=== PATIENT | male | born 1970 | race Caucasian/White ===

== ENCOUNTER 2019-10-12 13:12 | Outpatient (CLI) | payer BC, SELFPAY ==
--- NOTE | ~2019-10-12 | US_ITS ---
EXAMINATION: US venous doppler [facility] EXAM DATE: 10/12/2019 15:12 INDICATION: Left leg DVT follow-up. TECHNIQUE: Multiple grayscale, color flow and Doppler images of the left lower extremity deep venous system were obtained and reviewed. There is no prior study for comparison. FINDINGS: The left common femoral, femoral and profunda veins demonstrate normal color flow, respirat ory variation, augmentation and compressibility. Compressibility, color flow confirmed within the le ft popliteal, posterior tibial, peroneal, and greater saphenous veins. IMPRESSION: 1. No left lower extremity deep venous thrombosis. Reviewed, dictated and finalized at location G.
[2019-10-12 13:28] LABS: Hematocrit 43.3 % (42.0-52.0); Hemoglobin 14.5 g/dL (14.0-18.0)
[2019-10-12 13:40] LABS: Cholesterol 197 mg/dL (0-200); HDL Direct 32 mg/dL; Triglycerides 313 mg/dL (<150)
[2019-10-12 13:51] LABS: LDL Cholesterol Direct 89 mg/dL
== END 2019-10-12 13:13 | disposition home or self-care (01) ==
LOC: ANHIMG 13:13
PROVIDERS: PCP Internal Medicine; Visit Provider Internal Medicine
DX: I82.409 Acute embolism and thrombosis of unspecified deep veins of unspecified lower extremity (principal); D64.9 Anemia, unspecified; E78.5 Hyperlipidemia, unspecified
CPT/HCPCS: 36415; 80061; 85014; 85018; 93971

== ENCOUNTER 2021-10-20 06:15 | Emergency (ER) | payer BC, SELFPAY ==
--- NOTE | ~2021-10-20 | CT_ITS ---
EXAMINATION: CT abdomen pelvis wo con DATE: 10/20/2021 07:00 INDICATION: Left flank pain. Nephrolithiasis. Nausea and vomiting. TECHNIQUE: Computed tomography (CT) of the abdomen and pelvis was performed without intravenous contr ast. Automated exposure control and iterative reconstruction technique were employed. The dose-length product was 1609.34 mGy-cm. COMPARISON: 11/24/2010 FINDINGS: Lung bases are clear. Heart size is normal. No pericardial or pleural effusion. Calcified left hilar lymph nodes consistent with old granulomatous disease. Cholecystectomy clips the gallbladder fossa. L iver, spleen, pancreas, bilateral adrenal glands and right kidney are normal. There are 2 stones in t he proximal left ureter the larger and more distal measuring 3 to 4 mm in the immediately more proxim al measuring 2 mm. These are at least partially obstructing with mild left hydronephrosis. Additional 2 mm stone at a lower pole calyx of the left kidney. No right-sided urolithiasis. Bowels including t he appendix are normal. Bladder is normal. No free intraperitoneal gas or fluid. No pathologically en larged abdominal or pelvic lymphadenopathy. Scattered mild degenerative skeletal changes. IMPRESSION: 1. Bilateral nephrolithiasis including at least partially obstructing pair of small stones measuring up to 304 mm in the proximal left ureter with mild left hydronephrosis. Reviewed, dictated and finalized at location A. IMPRESSION: 1. Bilateral nephrolithiasis including at least partially obstructing pair of s mall stones measuring up to 304 mm in the proximal left ureter with mild left h ydronephrosis.
--- NOTE | ~2021-10-20 | XR_ITS ---
EXAMINATION: XR abdomen/kub 1V DATE: 10/20/2021 07:57 INDICATION: Left ureteral stone. TECHNIQUE: A supine view of the abdomen on 2 radiographs was obtained. COMPARISON: CT abdomen and pelvis 10/20/2021 FINDINGS: There are no dilated loops of bowel. There are surgical clips overlying left abdomen. There is no visible urolithiasis. IMPRESSION: 1. No visible urolithiasis. Reviewed, dictated and finalized at location B. IMPRESSION: 1. No visible urolithiasis.
[2021-10-20 06:19] VITALS: BP 141/109; PULSE 66; RESP 24; TEMP 36.7; O2SAT 99
--- NOTE | 2021-10-20 06:43 | ED.MALEGU ---
HPI - Male Genitourinary General Chief complaint: Urogenital-Male <Crystal Cadena MD - Last Filed: 10/20/21 07:10> Stated complaint: Left flank pain <Crystal Cadena MD - Last Filed: 10/20/21 07:10> Time Seen by Provider: 10/20/21 06:27 <Crystal Cadena MD - Last Filed: 10/20/21 07:10> History of Present Illness HPI Narrative: 50-year-old male coming in with severe left flank pain that woke him out of sleep about two hours ago, with some nausea and vomiting, feels exactly the way he did when he had his kidney stone 10 years ago. No fevers or chills. No dysuria. <Crystal Cadena MD - Last Filed: 10/20/21 07:10> Related Data Allergies/Adverse reactions: Allergies Allergy/AdvReac Type Severity Reaction Status Date / Time codeine Allergy Unknown hives and Verified 10/20/21 06:36 nausea <Crystal Cadena MD - Last Filed: 10/20/21 07:10> Review of Systems Review of Systems: CONST: No fever. HEENT: No sore throat C/V: No chest pain RESP: No cough GI: Reports abdominal pain, nausea, vomiting BACK: L flank pain : No dysuria. M/S: No body aches SKIN: No rash. NEURO: [No headache or focal numbness or weakness] <Crystal Cadena MD - Last Filed: 10/20/21 07:10> PMFSH Past Medical History Medical History: Medical History COVID-19 Dyslipidemia History of amputation of right hand Kidney stones <Crystal Cadena MD - Last Filed: 10/20/21 07:10> Surgical History Surgical History: Surgical History History of cholecystectomy <Crystal Cadena MD - Last Filed: 10/20/21 07:10> Family History Family History: Family History Grandparent Hypertension Father Family history of genitourinary disease Other Diabetes mellitus Family history of coronary artery disease Family history of kidney disease Family history of malignant neoplasm <Crystal Cadena MD - Last Filed: 10/20/21 07:10> Social History Social History: Social History Smoking status: Former smoker (for 6 months in college) Alcohol intake: current <Crystal Cadena MD - Last Filed: 10/20/21 07:10> Exam Narrative: EXAMINATION OF ORGAN SYSTEMS/BODY AREAS: Constitutional: Vital signs per nursing GENERAL: Appears quite uncomfortable in bed HEAD: Normal with no signs of head trauma. EYES: EOMI, conjunctiva normal ENT: Hearing grossly intact LUNGS: Nonlabored breathing. HEART: [Regular rate and rhythm] ABD: [Soft], left CVA tenderness EXT: Right upper extremity amputation SKIN: [No rashes or lesions.] NEURO: [Alert and oriented x 3. No gross focal sensory or strength deficits.] PSYCH: Normal affect <Crystal Cadena MD - Last Filed: 10/20/21 07:10> Course Course Emergency Course: 50-year-old male presenting with left flank pain with nausea, vital signs stable, exam shows uncomfortable appearing patient with left-sided flank pain, differential includes renal colic, less likely pyonephritis but dysuria, less likely PE given the sudden onset of symptoms without any chest pain or difficulty breathing. Patient will be given pain medications and UA and CT abdomen/pelvis noncon will be ordered, patient signed out to oncoming ER physician. <Crystal Cadena MD - Last Filed: 10/20/21 07:10> Received signout on the patient pending CT imaging. CT shows multiple stones largest 3 to 4 mm on the left proximal ureter. Results reviewed with patient. Case also cussed with urology as patient reported history of requiring stents. Given the size patient is appropriate for trial of outpatient management. Patient is comfortable outpatient plan. <Rock Marquez MD - Last Filed: 10/20/21 19:12> Vital Signs Vital signs: Vital Signs Temperature 36.7 C 10/20/21 06:19 Pulse Rate 66 10/20/21 06:19 Respiratory Rate 24 H
--- NOTE | 2021-10-20 06:44 | PC.NURSE ---
Pt unable to give urine sample at this time.
[2021-10-20] MEDS: ONDANSETRON INJ 4 MG/2 ML VIAL IV PUSH (06:47)
[2021-10-20 06:48] LABS: Basophils Percent Auto 0.3 % (0.2-1.2); Eosinophils Absolute Auto 0.1 K/mm3 (0-0.3); Eosinophils Percent Auto 0.7 % (0-4.4); Hematocrit 43.2 % (42.0-52.0); Hemoglobin 14.3 g/dL (14.0-18.0); Immature Granulocyte Absolute 0.03 K/mm3 (0.00-0.031); Immature Granulocyte Percent A 0.3 % (0-0.5); Lymphocytes Absolute Auto 1.48 K/mm3 (0.9-3.2); Lymphocytes Percent Auto 12.8 % (18.3-44.2); Mean Corpuscular HGB Conc 33.1 g/dl (32-36); Mean Corpuscular Hemoglobin 29.4 pg (26-34); Mean Corpuscular Volume 88.7 fl (80-100); Mean Platelet Volume 10.5 fl (7.4-10.4); Monocytes Absolute Auto 0.5 K/mm3 (0.1-0.6); Monocytes Percent Auto 4.4 % (2.6-8.5); Neutrophils Absolute Auto 9.5 K/mm3 (1.3-6.7); Neutrophils Percent Auto 81.5 % (45.5-73.1); Platelet Count Result 238 k/mm3 (150-375); Red Blood Count 4.87 M/mm3 (4.6-6.20); Red Cell Distribution Width 12.5 % (11.5-14.5); White Blood Count 11.6 K/mm3 (4.5-10.0)
[2021-10-20] MEDS: MORPHINE SULFATE (*CRX) 4 MG/ML INJ IV PUSH ×2 (06:48→07:45)
--- NOTE | 2021-10-20 06:54 | PC.NURSE ---
Pt to CT via wheelchair at this time
[2021-10-20 06:56] LABS: Alanine Aminotransferase 21 U/L (6-50); Albumin Level 4.8 g/dL (3.5-5.1); Alkaline Phosphatase 96 U/L (38-126); Anion Gap 9 mmol/L (8-16); Aspartate Amino Transferase 26 U/L (17-59); Bilirubin,Total 0.3 mg/dL (0.2-1.3); Blood Urea Nitrogen 23 mg/dL (9-20); Calcium 9.3 mg/dL (8.4-10.2); Carbon Dioxide 23 mmol/L (22-30); Chloride 107 mmol/L (98-107); Estimated CRCL calculation 74 ml/min; Estimated Glomerular Filt Rate 54; Glucose 156 mg/dL (65-110); Potassium 4.5 mmol/L (3.4-5.0); Sodium 139 mmol/L (137-145)
[2021-10-20 08:50] VITALS: BP 136/82; PULSE 61; RESP 16
== END 2021-10-20 08:50 | disposition home or self-care (01) ==
PROVIDERS: Emergency Medicine; Emergency Provider Emergency Medicine; PCP Internal Medicine
DX: N13.2 Hydronephrosis with renal and ureteral calculous obstruction (principal); E78.5 Hyperlipidemia, unspecified; Z86.16 Personal history of COVID-19; Z89.111 Acquired absence of right hand; Z87.442 Personal history of urinary calculi; Z87.891 Personal history of nicotine dependence
CPT/HCPCS: 36415; 74018; 74176; 80053; 85025; 96361; 96374; 96375; 96376; 99284; J2270; J2405

== ENCOUNTER 2021-10-22 10:39 | Outpatient (CLI) | payer BC, SELFPAY ==
--- NOTE | ~2021-10-22 | CT_ITS ---
EXAMINATION: CT abdomen pelvis wo con DATE: 10/22/2021 11:03 INDICATION: Left ureteral stone. TECHNIQUE: Computed tomography (CT) of the abdomen and pelvis was performed without intravenous contr ast. Automated exposure control and iterative reconstruction technique were employed. The dose-length product was 1519.37 mGy-cm. COMPARISON: CT abdomen and pelvis 10/20/2021 FINDINGS: The visualized portions of the lung bases are clear without pneumonia or pleural effusion. The heart size is normal. No pericardial effusion. The liver is normal. Calcifications in the spleen are consistent with old granulomatous disease. There are changes of cholecystectomy. The pancreas, ad renal glands, and right kidney are normal. There is a 2 mm stone in left kidney. There is mild left h ydronephrosis. There are 3 mm and 2 mm stones in proximal left ureter. The prostate is mildly enlarge d. There are no dilated loops of bowel. The appendix is normal. There are no pathologically enlarged lymph nodes. There is no free intraperitoneal fluid. There is mild thoracolumbar spondylosis. 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 IMPRESSION: 1. 3 mm and 2 mm stones in proximal left ureter with mild left hydronephrosis. 2. 2 mm nonobstructing left kidney stone. Reviewed, dictated and finalized at location B.
== END 2021-10-22 10:40 | disposition home or self-care (01) ==
PROVIDERS: PCP Internal Medicine; Visit Provider Nurse Practitioner Adult Health
DX: N13.2 Hydronephrosis with renal and ureteral calculous obstruction (principal); N40.0 Benign prostatic hyperplasia without lower urinary tract symptoms; M47.815 Spondylosis without myelopathy or radiculopathy, thoracolumbar region
CPT/HCPCS: 74176

== ENCOUNTER 2023-05-18 08:58 | Outpatient (CLI) | payer BC, SELFPAY ==
[2023-05-18 10:12] LABS: Hematocrit 39.7 % (42.0-52.0); Hemoglobin 12.8 g/dL (14.0-18.0); Mean Corpuscular HGB Conc 32.2 g/dl (32-36); Mean Corpuscular Hemoglobin 28.6 pg (26-34); Mean Corpuscular Volume 88.8 fl (80-100); Mean Platelet Volume 10.6 fl (7.4-10.4); Platelet Count Result 210 k/mm3 (150-375); Red Blood Count 4.47 M/mm3 (4.6-6.20); Red Cell Distribution Width 12.9 % (11.5-14.5)
[2023-05-18 10:21] LABS: Appearance Urine Clear (Clear); Bilirubin Urine Negative (Negative); Blood Urine Negative (Negative); Color Urine Yellow (Yellow); Glucose Urine UA Negative (Negative); Ketones Urine Negative (Negative); Leukocyte Esterase Ur Negative LEU/UL (NEGATIVE); Nitrate Urine Negative (Negative); Protein Urine Negative (Negative); Urobilinogen Urine 0.2 mg/dL (<2.0)
[2023-05-18 10:22] LABS: Alanine Aminotransferase 18 U/L (6-50); Albumin Level 4.1 g/dL (3.5-5.1); Alkaline Phosphatase 100 U/L (38-126); Anion Gap 9 mmol/L (8-16); Aspartate Amino Transferase 21 U/L (17-59); Bilirubin,Total 0.3 mg/dL (0.2-1.3); Blood Urea Nitrogen 13 mg/dL (9-20); Calcium 9.1 mg/dL (8.4-10.2); Carbon Dioxide 25 mmol/L (22-30); Chloride 105 mmol/L (98-107); Cholesterol 178 mg/dL (0-200); Estimated Glomerular Filt Rate > 60; Glucose 97 mg/dL (65-110); HDL Direct 39 mg/dL; Potassium 3.9 mmol/L (3.4-5.0); Sodium 139 mmol/L (137-145); Triglycerides 172 mg/dL (<150)
[2023-05-18 10:34] LABS: LDL Cholesterol Direct 89 mg/dL
[2023-05-18 10:36] LABS: Add Urine Microscopic? NO
[2023-05-18 14:30] LABS: Rapid Plasma Reagin Non-Reactive (NonReactive)
== END 2023-05-18 08:59 | disposition home or self-care (01) ==
LOC: ANHLAB 08:59
PROVIDERS: PCP Family Medicine; Visit Provider Family Medicine
DX: Z00.00 Encounter for general adult medical examination without abnormal findings (principal); E78.5 Hyperlipidemia, unspecified; F41.9 Anxiety disorder, unspecified; G47.10 Hypersomnia, unspecified; G25.81 Restless legs syndrome; N39.0 Urinary tract infection, site not specified
CPT/HCPCS: 36415; 80053; 80061; 81003; 84153; 85027; 86592; 87086; G0103